=== PATIENT | male | born 1985 | race Caucasian/White ===

== ENCOUNTER 2017-10-02 19:10 | Emergency (ER) | payer BC, SELFPAY ==
--- NOTE | 2017-10-02 19:10 | DT_ITS ---
This patient was seen during an EMR downtime October 01, 2017 - October 08, 2017. This patient may have a combination of paper and electronic documentation or all paper documentation. All documentation is viewable within the e-chart portion of [employer] for each patient visit.
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
== END 2017-10-02 20:50 | disposition home or self-care (01) ==
LOC: ED 10-04 09:30
PROVIDERS: Emergency Provider Emergency Medicine; Family Provider Family Medicine; PCP Family Medicine
DX: S00.03XA Contusion of scalp, initial encounter (principal); S50.811A Abrasion of right forearm, initial encounter; S50.812A Abrasion of left forearm, initial encounter; V29.9XXA Motorcycle rider (driver) (passenger) injured in unspecified traffic accident, initial encounter; Y93.9 Activity, unspecified; F17.210 Nicotine dependence, cigarettes, uncomplicated; Y92.9 Unspecified place or not applicable
CPT/HCPCS: 70450; 90715; 99282

== ENCOUNTER 2021-10-22 23:17 | Emergency (ER) | payer OTHER, SELFPAY ==
[2021-10-22 23:18] VITALS: BP 189/114; PULSE 88; RESP 17; TEMP 36.6; O2SAT 100; BMI 32.8
--- NOTE | 2021-10-22 23:27 | EX.ED.DYSGE1 ---
HPI History of Present Illness Chief Complaint: Ear Problem Narrative Narrative: 36-year-old male presenting with bilateral ear pain. He states his left is not hurting as bad as it was earlier. He bought some [id number]-[id number] drops which he is putting in his ear. He does not know the name of this. He states his right ear is more painful. No fevers or chills. He does state that he has some nasal congestion which may be causing some of the ear pain. PFSH PFS Medical History Knee pain Home Medications ciprofloxacin 0.3 %-dexamethasone 0.1 % ear drops,suspension (Ciprodex) 4 drp EACH EAR BID #7.5 mL 10/22/21 [Rx Last Taken Unknown] Allergy/AdvReac Type Severity Reaction Status Date / Time No Known Allergies Allergy Unverified 10/22/21 23:21 Family History Other Alzheimer disease Diabetes Myocardial infarction Social History Smoking Status: Never smoker alcohol intake: current alcohol intake frequency: a few times a month ROS ROS ED Constitutional Constitutional ED: Denies chills or fever(s) Eyes Eyes: Denies change in vision ENT ENT ED: Reports ear pain bilateral and other Details: Nasal congestion Cardiovascular Cardiovascular: Denies chest pain or palpitations Respiratory/Chest Respiratory/Chest: Denies cough or dyspnea Gastrointestinal Gastrointestinal: Denies abdominal pain or constipation Genitourinary Genitourinary ED: Denies dysuria Musculoskeletal Musculoskeletal: Denies arthralgias or back pain Integumentary Denies abscess Neurologic Neurologic: Denies headache(s) or paresthesias Psychiatric Psychiatric: Denies anxiety or depression EXAM Physical Exam Const Vital Signs: 10/22/21 23:18 Temperature 98 F Temperature Source Temporal Pulse Rate 88 Respiratory Rate 17 Blood Pressure 189/114 H Blood Pressure Mean 139 Pulse Ox 100 Oxygen Delivery Method Room Air Positive well nourished General Appearance ED: NAD HEENT Reports TM's clear and moist mucous membranes External Ear: mastoids normal External Auditory Canal: EAC's abnormal bilateral erythema, tenderness and otic discharge Tympanic Membrane ED: Yes TM's clear Eyes PERRL and EOMs intact bilaterally Resp normal respiratory effort and clear to auscultation bilaterally Cardio regular rate and regular rhythm Neuro oriented x3 and CN's II-XII intact bilaterally Skin no rashes or lesions noted MDM MDM MDM Narrative Medical decision making narrative: Patient presenting with bilateral ear pain with the right being worse than the left. On examination he does have erythema to the bilateral ear canals. He states he has been putting some drops in this but does not know what it is. It was bkcp-dir-kwualmr so it is not antibiotics. He started on Cortisporin here in the ED. He will apply this to the bilateral ears at home. He is to alternate Tylenol and ibuprofen as well. Impression: 1. Bilateral otitis externa Discharge Plan Triage Chief Complaint: Ear Problem Dx/Rx/DC Orders Instructions: ED External Ear Infection (Adult) Prescriptions: New ciprofloxacin-dexamethasone [Ciprodex] 0.3-0.1 % drops,suspension 4 drp EACH EAR BID Qty: 7.5 0RF Primary Care Provider: Mervin Morgan Referrals: Mervin Morgan, DO [Primary Care Provider] - Disposition Disposition: Home, Self Care
[2021-10-22] MEDS: Neomycin/Polymyxin/Dexameth 5ML OPTH.BTL 4 DRP OTIC (23:37)
[2021-10-22 23:38] VITALS: RESP 18
== END 2021-10-22 23:39 | disposition home or self-care (01) ==
LOC: ED 23:34
PROVIDERS: Emergency Provider Student in an Organized Health Care Education/Training Program; Visit Provider Student in an Organized Health Care Education/Training Program
DX: H60.93 Unspecified otitis externa, bilateral (principal)
CPT/HCPCS: 99282

== ENCOUNTER 2024-05-16 09:51 | Emergency (ER) | payer BC, SELFPAY ==
[2024-05-16 09:51] VITALS: BP 126/93; PULSE 79; RESP 14; TEMP 36.2; O2SAT 98; BMI 36.6
--- NOTE | 2024-05-16 10:40 | CT_ITS ---
STUDY: CT ABDOMEN AND PELVIS WITH CONTRAST REASON FOR EXAM: Male, 38 years old. Abdominal pain. Periumbilical pain. RADIATION DOSAGE (If Supplied By Facility): CTDIvol = ( 17.56 ) mGy, DLP = ( 1091.88 ) mGycm TECHNIQUE: Transaxial images were obtained from the dome of the diaphragm to the symphysis pubis without oral contrast. IV 100mL Isovue-300 was administered. Sagittal and coronal images were reconstructed. Individualized dose optimization techniques were used for this CT. COMPARISON: None. FINDINGS: The visualized lung bases are unremarkable. The visualized portions of the heart are within normal limits. There is decreased attenuation of the liver consistent with steatosis. Borderline hepatomegaly. Normal gallbladder and extrahepatic biliary system. Normal spleen. Normal pancreas. Normal bilateral adrenal glands. Normal right kidney. Normal left kidney. There is a small hiatal hernia. Normal small intestine. Normal colon. The appendix is visualized and appears normal. Normal abdominal aorta. Normal inferior vena cava. Normal retroperitoneum. Normal urinary bladder. There is a moderate-sized umbilical hernia containing fat. Increased markings are seen within the fat suggestive of possible early entrapment. The neck of the hernia measures 2.6 cm. Clinical correlation recommended. Bilateral inguinal hernias containing fat left greater than right. Normal osseous structures. CT/Abdomen/Pelvis W IV Cont ONLY IMPRESSION: Moderate size umbilical hernia containing fat with increased markings suggestive of possible early entrapment. The neck of the hernia measures 2.6 cm. Clinical correlation recommended. Bilateral inguinal hernias left greater than right. Fatty infiltration of the liver. Borderline hepatomegaly. Electronically Signed: Tj Ortiz MD at 11:16 EST ,
--- NOTE | 2024-05-16 10:49 | EX.ED.DYSGE1 ---
HPI History of Present Illness Chief Complaint: Abd Pain Narrative Narrative: Chief complaint and HPI: Abdominal pain. 38-year-old male with no significant past medical history presents for evaluation of periumbilical abdominal pain. Patient states that he has developed an umbilical hernia over the past several months. He states that it occasionally causes him discomfort. He states the discomfort has increased over the past several days. He states last night he developed worsening abdominal cramping and periumbilical pain. He denies any fever, chills, shortness of breath, chest pain, nausea, vomiting, diarrhea, constipation. Patient has never seen a surgeon in the past. He last ate at 6 AM. Review of systems: See HPI Medications: As listed on the chart Allergies: As listed on the chart PFSH: Per chart Vital signs: As listed on the chart. Reviewed. Physical exam: Gen: A&O x3, NAD Head: Normocephalic, atraumatic Eyes: No sclera icterus, conjunctiva clear ENT: Moist mucous membranes Neck: Trachea midline, No JVD CV: RRR, no murmurs, no peripheral edema Resp: Lungs CTA BL, no w/r/c GI: Abd soft, non-distended, non-tender except at small periumbilical hernia-partially reducible, there is erythema of the skin overlying the hernia which patient states is new, no r/r/g Musc: Full ROM, no deformity Skin: Warm, dry Neuro: Alert, oriented, grossly intact, sensation intact Psych: Cooperative, appropriate mood and [facility] Medical History Knee pain Allergy/AdvReac Type Severity Reaction Status Date / Time No Known Allergies Allergy Verified 05/16/24 09:57 Family History Other Alzheimer disease Diabetes Myocardial infarction Surgical History no surgical history Social History Smoking Status: Never smoker alcohol intake: current alcohol intake frequency: a few times a month EXAM Physical Exam Const Vital Signs: 05/16/24 09:51 Temperature 97.1 F L Temperature Source Temporal Pulse Rate 79 Respiratory Rate 14 Blood Pressure 126/93 H Blood Pressure Mean 104 Pulse Ox 98 Oxygen Delivery Method Room Air MDM MDM MDM Narrative Medical decision making narrative: 38-year-old male with no significant past medical history presents for evaluation of periumbilical abdominal pain. Differential diagnosis includes but is not limited to symptomatic hernia, incarcerated hernia, strangulated hernia, obstruction. Morphine and Zofran ordered for pain. Abdominal pain workup ordered. CBC without leukocytosis or anemia. CMP relatively unremarkable except for mild hypokalemia. No ARIANE. Lactic acid unremarkable. No transaminitis. Lipase unremarkable. CT abdomen pelvis shows a moderate size umbilical hernia containing fat with increased markings suggestive of possible early entrapment. The neck of the hernia measures 2.6 cm. Patient has bilateral inguinal hernias. On reevaluation, patient's pain is minimal. I did lay him flat and placed a ice pack to help reduce the hernia. Again I was only able to partially reduce his hernia. Given his new skin changes with pain and CT abdomen pelvis findings, general surgery was contacted and patient was discussed with Dr. Lopez. He evaluated the patient. Patient stable to discharge home. Follow-up with him in office. Patient was educated on return precautions such as increased pain, worsening skin changes, diarrhea, constipation, inability to eat or drink, nausea, vomiting. He confirmed understanding the plan. Patient stable to discharge home. Impression: 1. Incarcerated hernia, partially reduced Lab Data Labs: Laboratory Results - last 24 hr 05/16/24 10:50 WBC 8.6 RBC 4.81 Hgb 13.7 Hct 39.8 L MCV 82.7 MCH 28.5 MCHC 34.4 RDW Std Deviation 36.6 RDW Coeff of Tom 12.1 Plt Count 291 MPV 9.2 Immature Gran % (Auto) 0.400 Neut % (Auto) 53.5 Lymph % (Auto) 33.6 [place] % (Auto) 8.4 Eos % (Auto) 3.6 Baso % (Auto) 0.5 Absolute Neuts (auto) 4.6 Absolute Lymphs (auto) 2.88 Nucleated RBC % 0 Sodium 138 Potassium 3.3 L Chloride 106 Carbon Dioxide 25.0 Anion Gap 8 BUN 15 Creatinine 0.89 Estim Creat Clear Calc 133.18 Est GFR (MDRD) Af Amer 124 Est GFR (MDRD) Non-Af 102 BUN/Creatinine Ratio 16.8 Glucose 95 Lactic Acid 0.7 Calcium 8.4 L Total Bilirubin 0.50 AST 23 ALT 45 Alkaline Phosphatase 69 Total Protein 6.9 Albumin 3.5 Globulin 3.4 Albumin/Globulin Ratio 1.0 Lipase 32 Radiography Diagnostic Testing: Clinical Impression(s) from Imaging Studies Abdomen/Pelvis CT 05/16/24 10:40 IMPRESSION: Moderate size umbilical hernia containing fat with increased markings suggestive of possible early entrapment. The neck of the hernia measures 2.6 cm. Clinical correlation recommended. Bilateral inguinal hernias left greater than right. Fatty infiltration of the liver. Borderline hepatomegaly. Electronically Signed: Tj Ortiz MD at 11:16 EST , Discharge Plan Triage Chief Complaint: Abd Pain ED Provider: Remy Andino Dx/Rx/DC Orders Primary Care Provider: Care Physician,No Primary Referrals: Care Physician,No Primary [Primary Care Provider] - Print Language: [place]
[2024-05-16] MEDS: Morphine 4 MG/ML Syringe IV (10:57)
[2024-05-16] MEDS: Ondansetron 4 MG/2 ML Vial IV (10:57)
[2024-05-16 11:00] LABS: Absolute Lymphocyte Count 2.88 X10^3/uL (0.83-4.51); Absolute Neutrophil Count 4.6 X10^3/uL (2.0-7.7); Basophil# 0.04 X10^3/uL; Basophil% 0.5 % (0-1); Eosinophil# 0.31 X10^3/uL; Eosinophils% 3.6 % (0-5); Hematocrit 39.8 % (40-54); Hemoglobin 13.7 g/dL (13.0-16.5); Lymphocyte # 2.88 X10^3/ul (0.83-4.51); Lymphocyte % 33.6 % (19-41); Mean Corp Hgb Conc 34.4 g/dL (32-36); Mean Corpuscular Hgb 28.5 pg (27.0-32.0); Mean Corpuscular Volume 82.7 fL (80-94); Mean Platelet Vol. 9.2 fl (6.2-12.0); Monocyte# 0.72 X10^3/uL; Monocyte% 8.4 % (0-10); NRBC Flagged by Analyzer 0 % (0-5); Neutrophil # 4.59 X10^3/uL (2.7-7.7); Neutrophil % 53.5 % (47-70); Platelet Count 291 K/mm3 (150-450); RBC Distribution Width CV 12.1 % (11.6-14.6); RBC Distribution Width SD 36.6 fl (35.1-43.9); Red Blood Count 4.81 M/mm3 (4.6-6.2); White Blood Count 8.6 K/mm3 (4.4-11.0)
[2024-05-16 11:20] LABS: AST(SGOT) 23 U/L (15-37); Alanine Aminotransfer ALT/SGPT 45 U/L (16-61); Albumin, Serum 3.5 g/dL (3.2-5.0); Alkaline Phosphatase 69 U/L (45-117); Anion Gap 8 (5-15); BUN 15 mg/dL (7-18); BUN/Creat Ratio 16.8 RATIO (10-20); Calcium,Total 8.4 mg/dL (8.5-10.1); Chloride 106 mmol/L (98-107); Creatinine, Serum 0.89 mg/dL (0.70-1.30); EST Glomerular Filtration Rate 102 mL/min (>60); Est Glom Filt Rate - Afr Amer 124 mL/min (>60); Estimated Creatinine Clearance 133.18 ml/min; Globulin 3.4 g/dL (2.2-4.2); Glucose 95 mg/dL (74-106); Lipase 32 U/L (13-75); Potassium 3.3 mmol/L (3.5-5.1); Protein, Total 6.9 g/dL (6.4-8.2); Sodium Level 138 mmol/L (136-145)
[2024-05-16 11:31] LABS: Lactic Acid 0.7 mmol/L (0.4-1.9)
[2024-05-16 13:51] VITALS: BP 133/94; PULSE 76; RESP 16; O2SAT 99
--- NOTE | 2024-05-16 14:21 | CON.PCM.SX_ITS ---
Assessment & Plan Assessment/Plan (1) Umbilical hernia: QUALIFIERS: Obstruction and gangrene presence: without obstruction or gangrene Qualified Code(s): K42.9 - Umbilical hernia without obstruction or gangrene PLAN: Patient is a 38-year-old, otherwise healthy, male who presents with newly diagnosed umbilical hernia that appears to contain some incarcerated omental fat. Patient was experiencing more pain and bulging prior to emergency medicine evaluation when they were able to at least partially reduce his hernia. On exam he has some mild redness but the hernia contents are soft and only mildly tender with palpation. I believe I was able to further reduce these contents at least slightly. It is quite possible this hernia defect is now chronically incarcerated, but CT imaging shows that there is no bowel content to these hernia contents. Thus I discussed how chronic incarceration of the hernia may be potentially beneficial and exclude bowel from entering the hernia defect ongoing until he can be properly repaired. Regarding repair, I suggested that patient would be an ideal candidate for a minimally invasive hernia repair with mesh (as he readily acknowledges significant physical demands with his job. Furthermore a robot-assisted laparoscopic repair of his umbilical hernia could be coupled with a robot-assisted bilateral inguinal hernia repair (noted during his CT imaging) and thus limit his operative needs and subsequent recovery. Upon hearing this plan patient and his were receptive and agreed to follow- up with me as an outpatient. In the interim I did provide red flag warning signs that should move him to return to the emergency department for reevaluation. He also confirmed understanding of this information. The above plan was given to emergency medicine. Nelson Lopez MD General Surgery Endocrine Surgery Pager: [facility] [address] [place] [address], [address] [place] [id number] Office: [phone] HPI Consult Data Date of Consult: 05/16/24 HPI Narrative Reason for Consultation: Incarcerated umbilical hernia HPI Narrative: LUNA SAN, is a 38 M who presents to [facility] emergency department with complaints of progressive periumbilical pain and bulging. He shares that he was not fully aware of what exactly was going on at his [facility] area until today but estimates that his issues began a couple of months ago. He describes feeling the stomach muscles around the hernia becoming tight. He does not recall an inciting event to lead to the hernia. 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 Patient's ER workup was notable for CT imaging of the abdomen pelvis that showed fat incarcerated umbilical hernia with some stranding associated with the fat within the hernia. Additionally, radiology commented that there were bilateral inguinal hernias as well. [facility] Medical History Knee pain Allergy/AdvReac Type Severity Reaction Status Date / Time No Known Allergies Allergy Verified 05/16/24 09:57 Family History Other Alzheimer disease Diabetes Myocardial infarction Surgical History no surgical history Social History Smoking Status: Never smoker alcohol intake: current alcohol intake frequency: a few times a month Physical Exam Const alert and oriented x3 Constitutional Narrative: Only mild distress when traction was placed on hernia General Appearance: cooperative Nutritional Appearance: obese Resp normal respiratory effort GI GI Narrative: Obese. Mild redness over umbilical bulge that is soft and partially reducible. Patient has minimal tenderness with palpation. I believe I feel the fascial edges but I do not believe the fatty tissue is fully reduced back to the peritoneal cavity. Patient's abdomen is otherwise nondistended and nontender to palpation. There are no scars or evidence of other herniations. Lab / Micro Data 05/16/24 10:50 05/16/24 10:50 Labs: Laboratory Results - last 24 hr 05/16/24 10:50: WBC 8.6, RBC 4.81, Hgb 13.7, Hct 39.8 L, MCV 82.7, MCH 28.5, MCHC 34.4, RDW Std Deviation 36.6, RDW Coeff of Tom 12.1, Plt Count 291, MPV 9.2, Immature Gran % (Auto) 0.400, Neut % (Auto) 53.5, Lymph % (Auto) 33.6, [place] % (Auto) 8.4, Eos % (Auto) 3.6, Baso % (Auto) 0.5, Absolute Neuts (auto) 4.6, Absolute Lymphs (auto) 2.88, Nucleated RBC % 0, Sodium 138, Potassium 3.3 L, Chloride 106, Carbon Dioxide 25.0, Anion Gap 8, BUN 15, Creatinine 0.89, Estim Creat Clear Calc 133.18, Est GFR (MDRD) Af Amer 124, Est GFR (MDRD) Non-Af 102, BUN/Creatinine Ratio 16.8, Glucose 95, Lactic Acid 0.7, Calcium 8.4 L, Total Bilirubin 0.50, AST 23, ALT 45, Alkaline Phosphatase 69, Total Protein 6.9, Albumin 3.5, Globulin 3.4, Albumin/Globulin Ratio 1.0, Lipase 32 Imaging Radiology Impression Abdomen/Pelvis CT 05/16/24 10:40 IMPRESSION: Moderate size umbilical hernia containing fat with increased markings suggestive of possible early entrapment. The neck of the hernia measures 2.6 cm. Clinical correlation recommended. Bilateral inguinal hernias left greater than right. Fatty infiltration of the liver. Borderline hepatomegaly. Electronically Signed: Tj Ortiz MD at 11:16 EST ,
== END 2024-05-16 14:10 | disposition home or self-care (01) ==
PROVIDERS: Emergency Provider Surgery; Visit Provider Surgery
DX: K42.0 Umbilical hernia with obstruction, without gangrene (principal)

== ENCOUNTER → 2024-05-21 | Outpatient (CLI) | payer BC, SELFPAY | END | disposition home or self-care (01) | LOC: LABSPEC 16:03 | PROVIDERS: Referring Provider Surgery; Visit Provider Surgery | DX: Z01.818 Encounter for other preprocedural examination (principal) | CPT/HCPCS: 87081 ==

== ENCOUNTER 2024-05-30 10:15 | Day surgery (SDC) | payer BC, SELFPAY ==
[2024-05-30] VITALS (11 sets, daily range): BP systolic 124–139; BP diastolic 81–100; PULSE 67–86; RESP 16; TEMP 36–36.4; O2SAT 93–100; BMI 35.2
--- NOTE | 2024-05-30 10:47 | PCM.HP.BLA ---
History and Physical Date of Admission: 05/30/24 Date of Service: 05/21/24 MR#: [id number] Acct: [id number] Name: LUNA SAN Rep #: [id number] : 1985 Provider: Dr. Nelson Lopez MD Age/Sex: 38/M Location: [facility] Status: Signed Intake Vital Signs 05/16/2508:51 05/21/2513:56 Height 5 ft 7 in 5 ft 7 in Weight: 233 lb BMI 36.5 BP 136/82 H Blood Pressure Location Rt brachial Position Sitting Respiration 17 Pulse 96 Pulse Source Monitor Pulse Oximetry (%) 97 Oxygen Delivery Method room air Intake Visit Reasons: ED F/U - HERNIAS Chief Complaint: Hernias, ed f/u Is patient in pain?: Yes Allergies No Known Allergies Allergy (Verified 05/21/24 14:57) Medications ?Medication ?Instructions ?Recorded ?Confirmed ?Type coenzyme Q10 10 mg capsule (Co 10 mg PO TID 05/20/24 05/21/24 History Q-10) multivitamin (Daily Multi-Vitamin 1 tab PO DAILY 05/20/24 05/21/24 History tablet) vitamin D3 25 mcg (1,000 unit)-vit 1 tab PO DAILY 05/20/24 05/21/24 History K2 90 mcg disintegrating tablet (D3 Plus K2 Dots) glucosamine sulfate 500 mg tablet 500 mg PO QDAY 05/21/24 05/21/24 History (Glucosamine) omega 7-tsc-ygh-fish oil 60 mg-90 1 cap PO QDAY 05/21/24 05/21/24 History mg-500 mg capsule (Fish Oil) PFSH Medical History (Updated 05/21/24 @ 17:[address] Nelson Lopez MD) Pre-op testing Non-smoker Knee pain Surgical History (Updated 05/21/24 @ 14:55 by Josey Chahal) [place] teeth extracted Social History Smoking Status: Never smoker alcohol intake: current alcohol intake frequency: a few times a month HPI HPI HPI: LUNA SAN, is a 38 M who presents for ER follow-up after we first met on 05/16/2024 for complaints related to a fat incarcerated umbilical hernia. He shares today that he is definitely feeling better than he had but still is experiencing soreness. 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 He notes that his work has been very understanding and given him time off until his recovery after surgery. Below is recapitulated from patient's prior visit for ease review: Patient presents to [facility] emergency department with complaints of progressive periumbilical pain and bulging. He shares that he was not fully aware of what exactly was going on at his [facility] area until today but estimates that his issues began a couple of months ago. He describes feeling the stomach muscles around the hernia becoming tight. He does not recall an inciting event to lead to the hernia. 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 Patient's ER workup was notable for CT imaging of the abdomen pelvis that showed fat incarcerated umbilical hernia with some stranding associated with the fat within the hernia. Additionally, radiology commented that there were bilateral inguinal hernias as well. ROS General General: No weight change, appetite, fatigue, colon cancer, breast cancer or weakness HEENT HEENT: No difficulty swallowing, eye injury, eye surgery, swollen glands or hoarseness Endo Endocrine: No thyroid disease, diabetes mellitus, thyroid cancer, Hair loss, heat intolerance or cold intolerance Skin Skin: No rash or changing moles Musc Musculoskeletal: No back problems, arthritis, rheumatoid arthritis, gout or joint pain Cardio Cardiovascular: No murmur, pacemaker, heart disease, atrial fibrillation, high blood pressure, heart attack, heart stent, palpitations, shortness of breat with exertion or chest pain Psych Psychiatric: No depression, anxiety or hearing voices Resp Respiratory: No shortness of breath, No sleep apnea, No cough, No COPD, No asthma, No emphysema and No wheezing Gastro Gastrointestinal: Yes abdominal pain, No nausea or vomiting, No diarrhea, No constipation, No blood in stool, No acid reflux, No hemorrhoids, No ulcers, No gallbladder problem and No black,tarry stools Jorge Hematologic: No blood thinners, No blood disorders, No bleeding, No anemia and No blood clots Neuro Neurologic: No system reviewed and no additional complaints, except as documented, No as per HPI, No abnormal gait, No abnormal hearing, No abnormal movements, No abnormal speech, No behavioral changes, No burning sensations, No confusion, No convulsions, No disequilibrium, No dizziness, No localized weakness, No frequent falls, No headache(s), No lack of coordination, No loss of vision, No memory loss, No numbness, No other visual disturbances, No radicular pain, No restless legs, No sensory deficit, No syncope, No tingling, No tremor(s), No weakness and No other Exam Const General: cooperative, comfortable and no acute distress Resp Effort & Inspection: normal respiratory effort GI Other: Obese, mild purpling of the skin over umbilical hernia is contents are soft and yet not completely reducible. Patient has persistent tenderness. Abdomen is otherwise nontender to palpation x 4 quadrants Other: Testicles are bilaterally descended. I palpate no other masses. Patient has tenderness with exam bilaterally but right greater than left. I do not feel a discrete hernia defect on the left, however, I do identify probable indirect defect on the right. Assessment and Plan Assessment and Plan (1) Umbilical hernia: Status: Acute Qualifiers: Obstruction and gangrene presence: without obstruction or gangrene Qualified Code(s): K42.9 - Umbilical hernia without obstruction or gangrene Comment: Patient is a 38-year-old male who follows up after recent ER visit for newly diagnosed umbilical hernia containing incarcerated fat. His exam remained stable to improved following his ER visit. He confirms that his workplace has been understanding to allow him to proceed for repair. I discussed further the details around our plans for a minimally invasive, robot-assisted, umbilical hernia repair with mesh. We will plan to undertake repair of bilateral inguinal hernias at the same time. I reviewed lifting restrictions of no weight greater than 10 pounds for 5 weeks after surgery. Additionally, requested MRSA swab of the nares to minimize patient's risk for cross-contamination. Patient was given the opportunity ask any questions but stated that he felt comfortable with the information provided. Plan: Robot-assisted umbilical hernia repair with mesh to be completed alongside bilateral inguinal hernia repair with mesh. Outpatient disposition expected. Will follow-up patient's MRSA swab of the nares to determine if he requires preoperative eradication protocol. (2) Bilateral inguinal hernia without obstruction or gangrene: Status: Acute Comment: Newly?diagnosed bilateral inguinal hernias which patient stated initially were equally symptomatic, however, during exam he had more tenderness with right side than left side. This is interesting as patient's CT suggest that the left-sided hernia is bigger than the right side. Yet I identify probable defect on the right but I am unable to clearly identify the defect on the left side. I did suggest to the possibility of a large cord lipoma rather than a true hernia defect. Mr. San expressed understanding. Will plan to complete hernia repairs alongside of his umbilical hernia as noted above. Plan: Robot-assisted bilateral inguinal hernia repair with mesh to be completed concurrent with umbilical hernia Orders: Orders MRSA/SAID SCREEN (PRE SURG) Today Z01.818 - Encounter for other preprocedural examination I have examined the patient and the H&P has been reviewed. There are no clinical changes since date of exam. Patient's MRSA screen was negative. He has remained symptomatic with pain from both his umbilical site and his right groin. As above, given that his left inguinal region showed the largest amount of fatty tissue alongside the spermatic cord I advocate for proceeding with bilateral inguinal hernia repair even in the event there is no impression for a hernia on the left side in addition to planned umbilical hernia repair. Overview of the procedure and postprocedural activity restrictions were provided and all questions were answered from patient and his spouse. Will now proceed to the operating room for planned procedure.
--- NOTE | 2024-05-30 10:51 | PRE.ANES_ITS ---
ASA Classification* ASA Classification ASA Classification: 2 Assessment & Plan Anesthesia* Anesthesia Assessment Anesthesia Assessment: Discussed sedation and/or anesthesia options, risks, benefits, and alternatives with patient/parents/legal guardian/POA. Questions invited. The patient/parents/legal guardian/POA seems to understand and agrees to proceed with anesthesia plan. Reviewed the physical assessment, medical history, allergy history and patient home medications list prior to surgery/procedure/anesthetic and documented any changes. Performed airway and anesthesia risk assessments. Anesthesia Type Anesthesia Type: General Anesthesia Focused Assessment* Airway Assessment Mouth opens: >3 cm Mallampati Score: II Focused Labs Anesthesia Preop lab: CBC WBC 8.6 K/mm3 (4.4-11.0) 05/16/24 10:50 05/16/24 RBC 4.81 M/mm3 (4.6-6.2) 05/16/24 10:50 05/16/24 Hgb 13.7 g/dL (13.0-16.5) 05/16/24 10:50 05/16/24 Hct 39.8 % (40-54) L 05/16/24 10:50 05/16/24 Plt Count 291 K/mm3 (150-450) 05/16/24 10:50 05/16/24 CHEMISTRY Potassium 3.3 mmol/L (3.5-5.1) L 05/16/24 10:50 05/16/24 Sodium 138 mmol/L (136-145) 05/16/24 10:50 05/16/24 BUN 15 mg/dL (7-18) 05/16/24 10:50 05/16/24 Creatinine 0.89 mg/dL (0.70-1.30) 05/16/24 10:50 05/16/24 Glucose 95 mg/dL (74-106) 05/16/24 10:50 05/16/24 COAG Pre-Assessment Diagnosis/Proposed Procedure Planned Operative Procedure(s): (B) Lap Robotic Bilateral Inguinal Hernia w/mesh & umbilical hernia Anesthesia History 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 When Was Last Pacemaker Check QUESTION #4 FULL TEXT: You/Your Family Experience fever (hyperthermia) with Anesthesia Last Oral Intake Last Oral intake: Last Oral Intake NPO since Meds taken in AM with sips of water? Meds patient instructed to take am of surgery PONV PONV - construction checker: PONV - construction checker Female No 05/20/24 14:10 HX of Motion Sickness Yes 05/20/24 14:10 HX of N/V After Surgery No 05/20/24 14:10 Non-Smoker Yes 05/20/24 14:10 Duration of Surgery greater Yes 05/20/24 14:10 than 60 minutes Number of Risk Factors 3 05/20/24 14:10 PONV Score Moderate Risk 05/20/24 14:10 Height & Weight Height & Weight: Anesthesia: Height & Weight Height 5 ft 7 in 05/29/24 07:31 Weight: 105.687 kg 05/29/24 07:31 Respiratory Assessment Respiratory Assessment - construction checker: Respiratory Tract Infection Hx - construction checker Hx Respiratory Tract Infection No 05/20/24 14:10 STOP Sleep Apnea STOP Sleep Apnea - construction checker: STOP Sleep Apnea - construction checker Hx Hypertension No 05/20/24 14:10 Hx Sleep Apnea No 05/20/24 14:10 CPAP BIPAP Do you snore loudly (louder No 05/20/24 14:10 than talking or can be heard Do you often feel tired/ No 05/20/24 14:10 fatigued/ sleepy during daytime? Has anyone observed you stop No 05/20/24 14:10 breathing during sleep? STOP Results Negative 05/20/24 14:10 QUESTION #5 FULL TEXT : Do you snore loudly (louder than talking or can be heard through closed doors)? 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 Specify any problems Hx of Preganancy in last 3 N/A 05/20/24 14:10 Months Nurse Filling Out Transfusion NBUCHER 05/20/24 14:10 & Questions: Date: 05/20/24 05/20/24 14:10 Time: 14:11 05/20/24 14:10 Patient unable to answer at this time (ie. confused, unrespo /Reproduction History /Reproductive History - construction checker: /Reproductive Hx- construction checker Hx Now No 05/20/24 14:10 Gestational Age (in weeks): EDC: Hx Hx Para Hx Section SAB No 05/20/24 14:10 Active Medications Active Medications: Current Medications Generic Name Dose Route Start Last Admin Trade Name Freq PRN Reason Stop Dose Admin Cefazolin Sodium 2 gm/ N/A 20 mls @ 400 mls/hr 05/30/24 11:45 IV 05/30/24 11:47 PREOP [facility] Medical History Pre-op testing Non-smoker Knee pain Home Medications ?Medication ?Instructions ?Recorded ?Last Taken ?Type coenzyme Q10 10 mg capsule (Co 10 mg PO TID 05/20/24 U nknown History Q-10) multivitamin (Daily Multi-Vitamin 1 tab PO DAILY 05/20 Unknown History tablet) vitamin D3 25 mcg (1,000 unit)-vit 1 tab PO DAILY 05/01 05/24 Unknown History K2 90 mcg disintegrating tablet (D3 Plus K2 Dots) glucosamine sulfate 500 mg tablet 500 mg PO QDAY 05/21 Unknown History (Glucosamine) omega 3-mui-nkq-fish oil 60 mg-90 1 cap PO QDAY Unknown History mg-500 mg capsule (Fish Oil) Allergy/AdvReac Type Severity Reaction Status Date / Time No Known Allergies Allergy Verified 05/30/24 10:44 Surgical History [place] teeth extracted Social History Smoking Status: Never smoker alcohol intake: current alcohol intake frequency: a few times a month Review of Systems (Anesthesia) ROS Narrative System reviewed and no additional complaints, except as documented.
[2024-05-30] MEDS: 0.9% Normal Saline (1000mL) 1,000 ML 15 ML IV (11:03)
--- NOTE | 2024-05-30 11:45 | LIP_PTH ---
PATIENT: LUNA SAN LOC: [facility] [place] U#:[id number] AGE/SX: 38/M ROOM: RE05/30/[address]: Dr. Nelson Lopez MD : 1985 BED: DIS: 05/30/2024 SPEC #: [id number] RECD: 06/02/24 10:42 STATUS: MARTINEZ SHAGGY #: [id number] BLANK: 05/30/24 11:[address]: Nelson Lopez DEPT: SURGICAL PATHOLOGY RECD BY: Mavis Young ENTERED: 06/02/24 11:10 SP TYPE: LIPOMA OT DR: No Primary Care Phys Tissues: Soft tissues, NOS Procedures: Surgery Specimen Level III HEADER OPERATION: Laparoscopic robotic bilateral inguinal hernia with mesh and umbilical hernia PRE-OP DIAGNOSIS: Umbilical hernia, bilateral inguinal hernia without obstruction or gangrene TISSUE SUBMITTED: Right and left cord lipoma MICROSCOPIC DIAGNOSIS Right and left cord lipoma: Benign fibroadipose tissue, tissue from hernia repair. PW.mr 06/03/2024 MICROSCOPIC DESCRIPTION Slides are reviewed. GROSS DESCRIPTION Received in fixative is one container labeled with the patient's name and designated Right and left cord lipoma. The specimen consists of two irregular pieces of yellow adipose tissue measuring 6.5 x 4 x 1.2cm and 7 x 2.5 x 1cm. Section of both pieces reveal yellow adipose cut surfaces without area of hemorrhage, necrosis or cystic degeneration. 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 ALLISON. 06/02/2024 TC:5 CPT:41166
[2024-05-30] MEDS: Cefazolin 2 GM in Syringe IV (12:25)
[2024-05-30] MEDS: 0.9% Normal Saline (Pres. free 10 ML Vial ×2 (13:15→13:16)
[2024-05-30] MEDS: BUPIVACAINE LIPOSOME/PF 20 ML VIAL OPERA.SITE (13:17)
[2024-05-30] MEDS: Bupivacaine 0.25% 30 ML Vial ×2 (13:18)
--- NOTE | 2024-05-30 18:02 | OP.PCM_ITS ---
Operative Report (Standard) Operative Information Date of Procedure: 05/30/24 Pre-Operative Diagnosis: 1. Fat incarcerated umbilical hernia 2. Bilateral indirect Inguinal hernias 3. Bilateral cord lipomas Post-Operative Diagnosis: Same Surgery/Procedure Performed: 1. Transabdominal preperitoneal umbilical hernia repair with mesh 2. Transabdominal bilateral inguinal hernia pair with mesh 3. Tap block healthcare liaison: Yes Jtac: Michael Plaza Tasks completed by assistant import manager: Opening & closing and Trocar Additional business banking sales assistant?: Yes Additional Shipboard Intelligence Analyst #2: Dahiana Cottrell Tasks completed by business banking sales assistant #2: Opening & closing Type of Anesthesia: General/Supplemental RN Documented Start/Stop Times: Operation Date: 05/30/24 11:45 Case Time Into Pre-Op 05/30/24 10:37 Out of Pre-Op 05/30/24 12:05 Anesthesia Start 05/30/24 12:07 Into Room 05/30/24 12:07 Procedure Start 05/30/24 12:45 Procedure End 05/30/24 18:03 Anesthesia End 05/30/24 18:13 Out of Room 05/30/24 18:13 Into Recovery 05/30/24 18:18 Out of Recovery 05/30/24 19:18 Into Phase II Recovery 05/30/24 19:19 Out of Phase II 05/30/24 20:17 Procedure Start Time: 12:45 Procedure Stop Time: 06:03 Select all DRAINS/GRAFTS/IMPLANTS that apply: Implanted device (ProGrip mesh 10 x 12 reference LPG [id number], lot [id number]) Implanted device details: 3D max reference [id number], lot [id number], 3D max reference [id number], lot [id number] Estimated Blood Loss: 50 Specimen collected: Yes Description of specimen(s) removed: Right and left cord lipomas Description of surgery: After appropriate identification in the preoperative holding area, the patient was brought to the operating room suite where he was positioned supine the operating table. Preoperative antibiotics were administered. Patient was then induced with a general anesthetic. He was positioned with a bump under the left side and the table was broken at the level of the ASIS. Patient's abdomen was prepped and draped in the usual sterile fashion. A formal timeout followed to confirm patient and procedure. Procedure was begun with a Veress entry at Cunningham's point. Once the set point pressure was reached, this Veress needle was exchanged for an optical trocar and an optical entry was made in this location. Laparoscopic investigation revealed no inadvertent injury to the viscera below. A transversus abdominis plane block was created with 80mL of saline mixed with Exparel and bupivacaine under laparoscopic guidance. Then 2 additional 8 mm robotic trocars were placed along the abdominal wall laterally with approximately 10 cm spacing. In order to facilitate repair of patient's bilateral inguinal hernias 2 additional ports were placed in the right upper quadrant and epigastric midline space roughly a handsbreadth apart under laparoscopic visualization after first instilling local anesthetic at the skin. Patient was positioned in slight Trendelenburg and I performed a local block of the Bilateral ilioinguinal nerves using 3mL(Each side) local anesthetic under laparoscopic visualization. The robot was then brought in and docked in standard fashion. Robotically a peritoneal flap was raised approximately 2 cm medial from my trocars and carried this away towards the contralateral abdominal wall. Great care was taken to lower the peritoneum off of the posterior rectus sheath and avoid any rents in the peritoneal flap. Given the thinness of the peritoneum I actually looked to gain the layer above the posterior transversalis fascia and below the rectus sheath to add greater integrity to our flap. Selective electrocautery was used to cauterize perforating vessels as they were encountered. I then addressed the hernia directly by opening the scar tissue about the hernia sac and carefully applying manual traction downward until the hernia was fully reduced. The flap was then further dissected laterally until it appeared we had adequate width. The 2 cm hernia defect was closed with a #1 stratafix suture by running the fascial defect closed and then running the suture back upon itself. Next a 10 x 15 ProGrip mesh was cut down to a 10 x 12 mesh and was introduced into the peritoneum. A 3-0 Vicryl suture was used to tack this mesh along the midline and also the near side as the mesh showed a tendency of wanting to fall away from the abdominal wall until the peritoneal flap could be closed. Distally against the right abdominal sidewall the mesh was tucked nicely into the preperitoneal pocket and did not appear to be mobile. Then a 3-0 V-Loc suture was used to close the peritoneal flap. The robot was then undocked, the boom reoriented to the pelvis while the patient was positioned in a steep Trendelenburg and the robot re-docked. In this positioning I could visualize an indirect abdominal wall defect on the left and what appeared to be a smaller indirect defect on the right. Robotically, a peritoneal flap was created on the right extending from the medial umbilical ligament to the level of the ASIS (external) and was bluntly dissected inferiorly to expose the medial parietal compartment and lateral visceral compartments. Medially I could visualize the pubic tubercle and Mert's ligament while laterally I extended the dissection down to the level of the psoas musculature.Particularly in the medial parietal compartment it was difficult to initially visualize the pubic tubercle due to the abundance of adipose tissue encountered in the space of Retzius. The indirect hernia sac was identified and from the cord structures deeply with selective use of monopolar energy. A large cord lipoma was identified and removed From alongside the right spermatic cord with monopolar energy. I did feather out the Fat and loose areolar tissue medial to the vas deferens and the iliac vein. The peritoneal flap was inspected to ensure that cord was appropriately parietalized and there was no pulling of the cord structures or the viscera deeply over the psoas using the pull test. I then transitioned to the left side where once again robotically, a peritoneal flap was created extending from the medial umbilical ligament to the level of the ASIS (external) and was bluntly dissected to expose the medial parietal compartment and lateral visceral compartments. Medially I could visualize the pubic tubercle and Mert's ligament while laterally I extended the dissection down to the level of the ASIS. The larger indirect hernia sac was identified and from the cord structures deeply with selective use of monopolar energy. Once again a large cord lipoma was found adjacent and lateral to the hernia defect and was removed from the spermatic cord with care using selective electrocautery and a sweeping motion to minimize injury to the cord. Beyond this, I Did not visualize any other defects but care to thin out the fatty tissue medial to the iliac vein. The peritoneal flap was inspected to ensure that cord was appropriately parietalized and there some additional dissection of the indirect hernia sac was required to satisfy the pull test. Additionally identified that there would be an issue with trying to leave patient's cord lipoma was intact within the preperitoneal pocket so I elected to amputate a good two thirds majority from each cord lipoma structure making use of monopolar energy as I did so to maintain hemostasis. Care was taken also to avoid any injury to surrounding anatomy. The specimens were set outside of the dissection field for later retrieval. Once satisfied, Bard 3D max, size large, mid weight meshes were placed into the abdomen along with suture. Each mesh was positioned within its respective preperitoneal pocket so that there was good medial and inferior overlap. The medial aspect of both meshes were tacked to 1 another with using a 3-0 Vicryl suture. Lateral tacking sutures were also completed with additional interrupted 3-0 Vicryl sutures. A final tacking suture was used on the right side as there was some loss of apposition with the anterior abdominal wall. The peritoneal flap was then closed On each side with a running 3-0 V-Loc suture taking care to conceal the barbs of the suture beneath the peritoneum.This process proved particularly challenging on the right side where there had been an inadvertent vertical rent in the flap and the remainder of the peritoneal tissue was severely attenuated in the midportion of the flap. Two separate 3-0 V-Loc sutures were required for this closure and given the severe attenuation in the midportion of the flap I chose to create a local flap using an epiploic appendage of nearby sigmoid colon to fill the gap and provide protection of her underlying mesh. Once the flap closure was complete, I undertook repair of a small peritoneal defect overlying the area of the cord On the left with 3-0 Vicryl. With the peritoneal defects closed, sutures were systematically removed from the peritoneum Followed by the portions of the cord lipoma and a laparoscopic Endo Catch bag and the pneumoperitoneum was evacuated before removing the trocars. Additional local anesthetic was instilled and the port sites were closed with interrupted 4-0 Monocryl in subcuticular fashion. Steri-Strips and OpSite dressings were applied. Patient was transferred to PACU for ongoing care. Surgical Findings: ? 80 mL of tap block and ilioinguinal nerve block Complications Complications: No Admit VTE Documentation VTE Mechan Device Prophylaxis: SCD's
--- NOTE | 2024-05-30 18:06 | DCINST_ITS ---
Discharge Instructions Diet Discharge Diet: No restrictions Activity Discharge Activity: May Not Drive (While taking narcotic pain medication) and May Shower May shower in (days): 2 Ice area for (Minutes): 20 Lifting Restrictions: No lifting greater than 10 pounds for the next 5 weeks Dressing / Incision Call your doctor if your incision/area has: Continuous Slow Oozing, Increased Pain/ Swelling, Increased Redness, Foul Smelling Discharge and Swelling at the incision site Call your doctor if you observe: Fever of 101 or Higher, Inability to urinate and Inability to have a bowel movement Change Dressing in: 2 days (Please leave Steri-Strips intact until they fall off spontaneously or are taken off at your follow-up visit) Remove Dressing in: 2 days Cleanse incision/area with: Soap & Water and Keep Dressing Clean & Dry Follow Up Care Please Follow Up With: Nelson Lopez MD When: 1 week postop Test Results: Test results from this visit will be discussed in further detail at your follow- up appointment, if applicable. Discharge Plan Admission Primary Reason for Your Visit: Hernia repair x 3 Attending Provider: Nelson Lopez Primary Care Provider: Care Physician,Antonieta Primary Instructions Print Language: [place] Discharge Orders/Prescriptions Prescriptions: New oxycodone 5 mg tablet 5 mg PO Q6H PRN (Reason: pain) 4 Days Qty: 20 0RF Continued glucosamine sulfate [Glucosamine] 500 mg tablet 500 mg PO QDAY Rx Instructions: administer with a meal omega [id number]-fish oil [Fish Oil] 60-90-500 mg capsule 1 cap PO QDAY multivitamin [Daily Multi-Vitamin] Tablet 1 tab PO DAILY D3 Plus K2 Dots 25 mcg (1,000 unit)-90 mcg tablet,disintegrating 1 tab PO DAILY coenzyme Q10 [Co Q-10] 10 mg capsule 10 mg PO TID Referrals / Follow Up: Care Physician,No Primary [Primary Care Provider] - Disposition Disposition (needs filled in before D/C Order can be placed): Home, Self Care
[2024-05-30] MEDS: Ketorolac 30 MG/ML Syringe IV (19:09)
--- NOTE | 2024-05-30 19:13 | PCM.POST.ANE ---
Anesthesia: Postop Eval I Current Vital Signs Temperature: 96.8 F Pulse Rate: 86 Blood Pressure: 139/105 Respiratory Rate: 16 Pulse Ox: 95 Assessment Airway patent: Yes Spontaneous unlabored respirations: Yes nausea: Yes Vomiting: No Anesthesia Complication: No Fluid Hydration Crystalloid volume administer (ml): 2,100 Total IV fluid infused: 2,100 Progress Note Anesthesia document: Postop Eval 1 completed: Yes
[2024-05-31 08:14] VITALS: BP 139/105; PULSE 86; RESP 16; TEMP 36; O2SAT 95
--- NOTE | 2024-05-31 08:15 | PCM.POSTANE2 ---
Anesthesia Postop Eval I Sum Postop Eval Completion status Anesthesia document: Postop Eval 1 completed: Yes Anesthesia Postop Eval I Summary Anesthesia Postop Eval I Summary: Anesthesia Postop Eval I: Assessment Summary Airway patent Yes 05/31/24 08:14 Spontaneous unlabored Yes 05/31/24 08:14 respirations Mental status nausea Yes 05/31/24 08:14 Vomiting No 05/31/24 08:14 Anesthesia Postop Eval I: Fluid Summary Crystalloid volume administer ,05/31/24 08:14 (ml) Colloids volume administered ( ml) Blood Product volume administered (ml) Total IV fluid infused 05/31/24 08:14 Anesthesia Postop Eval I: Summary Notes Anesthesia Complication No 05/31/24 08:14 Anesthesia Complication Comment: Post-operative progress note Anesthesia: Postop Eval II Evaluation Mental status: Awake Pain Level: 2 nausea: No Vomiting: No
== END 2024-05-30 20:17 | disposition home or self-care (01) ==
LOC: SDC 10:17 → AC 10:17
PROVIDERS: Referring Provider Surgery; Visit Provider Surgery
PROC: (CPT 49592; principal; 2024-05-30 11:25)
DX: K42.0 Umbilical hernia with obstruction, without gangrene (principal); K40.20 Bilateral inguinal hernia, without obstruction or gangrene, not specified as recurrent
CPT/HCPCS: 49592; 49650; S2900; 00830; 88304; J0666; J2405